=== PATIENT | female | born 1960 | race American Indian/Alaskan Native ===

== ENCOUNTER 2019-07-13 19:48 | Emergency (ER) | payer SELFPAY ==
--- NOTE | 2019-07-13 20:07 | Event Note ---
ED Screening Note ED Screening Note: yesterday began having cough, generalized body aches, lightheaded, generalized weakness, no appetite no fever no n/v/d took zyrtec PMHx HTN-lisinopril and hctz states she was at work when she began to feel lightheaded This initial assessment/diagnostic orders/clinical plan/treatment(s) is/are subject to change based on patients health status, clinical progression and re- assessment by fellow clinical providers in the ED. Further treatment and workup at subsequent clinical providers discretion. Patient/guardian urged not to elope from the ED as their condition may be serious if not clinically assessed and managed.
[2019-07-13 20:09] VITALS: BP 112/67
--- NOTE | 2019-07-13 20:16 | Emergency Department Report ---
Chief Complaint: Dizziness Stated Complaint: DIZZY Time Seen by Provider: 07/13/19 20:04 - HPI History of Present Illness: yesterday began having cough, generalized body aches, lightheaded, generalized weakness, no appetite no fever no n/v/d no CP no SOB took zyrtec yesterday PMHx HTN-lisinopril and hctz states she was at work when she began to feel lightheaded after standing up and taking cough/cold medication she denies any dizziness or sensation of room spinning, denies headache, vision changes, numbness, or weakness, or feeling off balance she denies any light headedness currently blood pressure taken twice and each time was normal vitals are normal, no tachycardia, afebrile, normal oxygen saturation all 10 systems reviewed and are negative on exam: non toxic appearing, no acute distress normal appearance of the eyes moist mucus membranes normal oropharynx, no tonsillar hypertrophy, no exudates, uvula is midline normal TMs and canals bilaterally nasal turbinates edematous, no erythema, no purulent drainage, no sinus TTP bilaterally regular rate and heart rhythm, no gallops, no murmurs, no rubs breath sounds are clear bilaterally, no w/r/r skin is warm, dry intact Symptoms and examination consistent with viral URI Discussed symptomatic treatment and supportive care with the patient Patient is presenting with a nonmedical emergency at this time Medical screening examination performed and there is no threat to life or limb at this time Patient will be referred to a primary care physician Discussed with patient strict return precautions - Exam Vital Signs: Vital Signs 07/13/19 20:04 Temperature 99.6 F Pulse Rate 89 Respiratory 18 Rate Blood Pressure 112/67 O2 Sat by Pulse 97 Oximetry MSE screening note: Focused history and physical exam performed. ED Disposition for MSE Clinical Impression: Viral illness, Lightheaded Disposition: Z-07 MED SCREENING EXAM-LEFT Is pt being admited?: No Does the pt Need Aspirin: No Condition: Stable Instructions: Viral Syndrome (ED) Additional Instructions: may take mucinex during the day. may take theraflu nighttime at night. increase your fluid intake over the next several days. follow up with a primary care doctor in the next 2-3 days for reexamination. return to the emergency room for any new or worsening symptoms including but not limited to shortness of breath, productive cough, fever, unable to tolerate by mouth intake, etc. Referrals: your, primary care doctor [Other] - 2-3 Days Forms: Work/School Release Form(ED) Time of Disposition: 20:14 Print Language: TAJIK
== END 2019-07-13 20:21 | disposition left against medical advice (07) ==
LOC: ED 19:48
DX: B34.9 Viral infection, unspecified (principal); R42 Dizziness and giddiness; Z88.6 Allergy status to analgesic agent

== ENCOUNTER 2020-05-03 08:08 | Outpatient (CLI) | payer BC ==
--- NOTE | 2020-05-03 09:41 | Mammography Report ---
DIGITAL SCREENING MAMMOGRAM WITH CAD, 05/03/2020 CLINICAL INFORMATION / INDICATION: Routine screening mammography. TECHNIQUE: Digital bilateral 2D mammography was obtained in the craniocaudal and mediolateral obliqu e projections. This examination was interpreted with the benefit of Computer-Aided Detection analysis . COMPARISON: 05/22/2018, 09/13/2015 FINDINGS: Breast Density: The breasts are heterogeneously dense, which may obscure small masses. No dominant mass, suspicious calcifications, or architectural distortion in either breast. IMPRESSION: No mammographic evidence of malignancy. Follow up recommendation: Routine yearly BI-RADS Category 1: Negative. A "normal" or negative report should not discourage follow up or biopsy of a clinically significant f inding. A written summary of these findings will be mailed to the patient. The patient will be entered into a mammography reporting system which will generate a reminder letter for the patient's next appointmen t at the appropriate interval. [employer] recommends yearly mammograms starting at age 40 and continuing as l katherine as a woman is in good health. Breast MRI is recommended for women with an approximate 20-25% or greater lifetime risk of breast cancer, including women with a strong family history of breast or ova aleksandra cancer or who have been treated for Hodgkin's disease. Signer Name: Bartolo Myers MD Signed: 05/03/2020 9:36 AM Workstation Name: [id number]
== END 2020-05-03 08:09 | disposition home or self-care (01) ==
LOC: MAMMO 08:08
PROVIDERS: ATTEND Nurse Practitioner Family
DX: Z12.31 Encounter for screening mammogram for malignant neoplasm of breast (principal)
CPT/HCPCS: 77067